=== PATIENT | female | born 1935 | race Caucasian/White ===

== ENCOUNTER 2018-01-13 05:23 | Day surgery (SDC) | payer OTHER, BC ==
[~2018-01-13] VITALS: Ht 167.6 cm; Wt 75.3 kg
--- NOTE | ~2018-01-13 | O ---
[facility] [place] [address] OPERATIVE REPORT Name: AMINTA SAMUEL Room #: DEP [facility].#: [id number] Admission: 01/13/18 Attend Phys: Edu Crandall MD Discharge: 01/13/18 Date of : 31 Report #: [id number] THIS REPORT FOR: //name// CC: Dr. Darwin Crandall SURGEON: Edu Crandall MD SIGN BUILDER SUPERVISOR: None. PREOPERATIVE DIAGNOSIS: Bilateral lower lid ectropion. POSTOPERATIVE DIAGNOSIS: Bilateral lower lid ectropion. OPERATION PERFORMED: Bilateral lower lid ectropion repair. ANESTHESIA: Local with IV sedation. COMPLICATIONS: None. INDICATIONS FOR PROCEDURE: This patient has bilateral acquired lower lid ectropion with chronic tearing and discharge. The current procedures are undertaken in order to improve the patient's visual function, lacrimal outflow, and level of comfort. Informed consent was obtained to include but not limit to the risk of loss of vision, bleeding, infection, scarring, failure to improve the problem and need for further surgery. DESCRIPTION OF OPERATION: The patient was taken to the operating room where 2% Xylocaine with epinephrine mixed with equal parts of 0.75% Marcaine with Wydase was administered transcutaneously and transconjunctivally to each lower lid and lateral canthal area. The patient was then prepped and draped in the usual sterile fashion. A Kirt clamp was then used to clamp the left lateral canthus following which a sharp canthotomy and cantholysis were performed. The tarsal strip was prepared laterally, removing the lash bearing portion of the redundant lid margin and the redundant tarsal plate. Hemostasis was achieved with a monopolar cautery, as it was throughout the case. The tarsal strip was then secured to the internal portion of the lateral orbital tubercle with two interrupted 5-0 Prolene sutures. The lateral canthal angle was sharply reformed as the subcutaneous structures and the skin were closed with multiple interrupted 6-0 plain gut sutures. Attention was then turned to the right side where the same procedure was performed. The wounds were cleaned and dressed with ophthalmic antibiotic ointment. The patient was then transported to the recovery area, having [address] [address] OPERATIVE REPORT Name: AMINTA SAMUEL Room #: DEP [facility]#: [id number] Admission: 01/13/18 Attend Phys: Edu Crandall MD Discharge: 01/13/18 Date of : 31 Report #: [id number] tolerated the procedure well with no anesthetic or operative complications being noted. <ELECTRONICALLY SIGNED> By: Edu Crandall MD 01/17/18 0614 1243 1252 Edu Crandall MD /nt
[~2018-01-13 05:23] MED LIST: ASPIR 8181 MG PO; ATORVASTATIN CA40 MG PO; CALCIUM 500 +1 EAC5 PO; CENTRUM SILVER1 EAC4 PO; CHLORTHALIDONE25 MG PO; GLYBURIDE 5 MG T5 M1 PO; LOPRESSOR25 PO; METFORMIN HCL500 MG PO; NORCO 10-325 T1 EACH PO; PRINIVIL20 M1 PO; TRAZODONE HCL50 MG PO; ZOLOFT100 MG PO
[2018-01-13 12:00] VITALS: BP 137/85
== END 2018-01-13 16:00 | disposition home or self-care (01) ==
LOC: TBA 05:23 → OR 05:23 → TBA 05:24 → OR 13:25
DX: H02.102 Unspecified ectropion of right lower eyelid (principal); H02.105 Unspecified ectropion of left lower eyelid; I10 Essential (primary) hypertension; E11.9 Type 2 diabetes mellitus without complications; E78.00 Pure hypercholesterolemia, unspecified; F32.9 Major depressive disorder, single episode, unspecified; F41.9 Anxiety disorder, unspecified; G47.33 Obstructive sleep apnea (adult) (pediatric); Z95.5 Presence of coronary angioplasty implant and graft; Z98.41 Cataract extraction status, right eye; Z98.42 Cataract extraction status, left eye; Z90.49 Acquired absence of other specified parts of digestive tract; Z98.890 Other specified postprocedural states; Z88.0 Allergy status to penicillin; Z88.2 Allergy status to sulfonamides; Z88.8 Allergy status to other drugs, medicaments and biological substances; Z79.82 Long term (current) use of aspirin; Z79.899 Other long term (current) drug therapy; Z79.891 Long term (current) use of opiate analgesic
CPT/HCPCS: 50010; 50101; 50386; 50398; 51636; 56527; 56531; 62110; 62850; 70005

== ENCOUNTER 2018-04-25 05:25 | Day surgery (SDC) | payer OTHER, BC ==
[~2018-04-25] VITALS: Ht 167.6 cm; Wt 74.8 kg
--- NOTE | ~2018-04-25 | O ---
[facility] [place] [address] OPERATIVE REPORT Name: AMINTA SAMUEL Room #: 150-2 [facility]..#: [id number] Admission: 04/25/18 Attend Phys: Edu Crandall MD Discharge: Date of : 31 Report #: [id number] THIS REPORT FOR: //name// CC: Darwin Crandall DATE OF SERVICE: 04/25/2018 PREOPERATIVE DIAGNOSIS: Bilateral upper lid ptosis with superior visual field defects both eyes. POSTOPERATIVE DIAGNOSIS: Bilateral upper lid ptosis with superior visual field defects both eyes. OPERATION PERFORMED: Bilateral upper lid functional ptosis repair. AUDIO VIDEO MECHANIC: None. ANESTHESIA: Local with IV sedation. COMPLICATIONS: None. INDICATIONS FOR PROCEDURE: This patient has bilateral upper lid ptosis with superior visual field loss both eyes. Visual field testing demonstrates dense superior visual defects. Retesting with the upper lid elevated shows an improvement in visual field loss of over 30% and in excess of 12 degrees. The current procedure is being undertaken in order to improve the patient's visual function. Informed consent was obtained to include but not limited to the risk of loss of vision, bleeding, infection, scarring, failure to improve the problem and need for further surgery, such as adjustment of lid height. DESCRIPTION OF PROCEDURE: The patient was taken to the operating room, where 2% Xylocaine with epinephrine mixed with equal parts of 0.75% Marcaine with Wydase was administered transcutaneously to each upper lid. The patient was then prepped and draped in the usual sterile fashion. An upper lid crease incision was then made bilaterally and the dissection was carried down until the orbital septum was identified. The orbital septum was then cleared and the preaponeurotic fat identified. The levator aponeurosis was then disinserted from the anterior surface of the tarsal plate and dissected free in the avascular Wick's muscle plane. The aponeurosis was then advanced and reattached to the anterior surface of the tarsal plate with interrupted [facility] [address] [place] [address] OPERATIVE REPORT Name: AMINTA SAMUEL Cathy Room #: 150-2 [facility].#: [id number] Admission: 04/25/18 Attend Phys: Edu Crandall MD Discharge: Date of : 31 Report #: [id number] 6-0 Novafil sutures on each side, adjusting for height and contour. The redundant aponeurosis was then amputated. The incision was then closed with multiple interrupted 6-0 chromic sutures that were used to recreate an upper lid crease. The skin was closed with a running 6-0 plain gut suture. The wound was then cleaned and dressed with ophthalmic antibiotic ointment followed by a Telfa pad. The patient was transported to the recovery area, having tolerated the procedure well with no anesthesia or operative complications being noted. By: [id number] MD alexia Sanchez
--- NOTE | ~2018-04-25 | EKG ---
[address] [address] ELECTROCARDIOGRAM REPORT Name: LIZZIEAMINTA Room #: DEP [facility]#: [id number] Admission: 04/25/18 Attend Phys: Edu Crandall MD Discharge: 04/25/18 Date of : 31 Report #: [id number] THIS REPORT FOR: //name// [facility] Test Date: 2018-04-25 Test Time: 11:25:30 Pat Name: AMINTA SAMUEL Department: Room: 150 2 Gender: F Ambulatory Care Coordinator: BERTA : 1935 Requested By: Edu Crandall Order Number: [id number] MD: Quang Lawrence Measurements Intervals [place] Rate: 46 P: -30 VA: 210 QRS: -57 QRSD: 95 T: 23 QT: 504 QTc: 441 Interpretive Statements Sinus bradycardia Atrial premature complex Abnormal R-wave progression, late transition No previous ECG available for comparison Electronically Signed On 04-25-2018 15:58:26 CDT by Quang Lawrence [email or web address] <ELECTRONICALLY SIGNED> By: Quang Lawrence MD 04/25/18 1558 1125 1125 Quang Lawrence MD /PINEDA
== END 2018-04-25 13:56 | disposition home or self-care (01) ==
LOC: OR 05:25 → TBA 05:25 → OR 09:29
DX: H02.403 Unspecified ptosis of bilateral eyelids (principal); H53.462 Homonymous bilateral field defects, left side; H53.461 Homonymous bilateral field defects, right side; I10 Essential (primary) hypertension; E11.9 Type 2 diabetes mellitus without complications; E78.00 Pure hypercholesterolemia, unspecified; G47.33 Obstructive sleep apnea (adult) (pediatric); F32.9 Major depressive disorder, single episode, unspecified; F41.9 Anxiety disorder, unspecified; Z90.49 Acquired absence of other specified parts of digestive tract; Z90.711 Acquired absence of uterus with remaining cervical stump; Z98.890 Other specified postprocedural states; Z79.899 Other long term (current) drug therapy; Z98.41 Cataract extraction status, right eye; Z95.5 Presence of coronary angioplasty implant and graft; Z98.42 Cataract extraction status, left eye; Z88.0 Allergy status to penicillin; Z88.2 Allergy status to sulfonamides; Z88.8 Allergy status to other drugs, medicaments and biological substances; Z79.82 Long term (current) use of aspirin; Z79.891 Long term (current) use of opiate analgesic
CPT/HCPCS: 50010; 50101; 50386; 50398; 51636; 56528; 56531; 62110; 62850; 70005

== ENCOUNTER → 2019-12-06 | Outpatient (CLI) | payer OTHER, BC | LOC: SJCVCIMAG 15:18 | DX: I11.9 Hypertensive heart disease without heart failure (principal); I25.10 Atherosclerotic heart disease of native coronary artery without angina pectoris; E78.00 Pure hypercholesterolemia, unspecified; E11.9 Type 2 diabetes mellitus without complications; R94.31 Abnormal electrocardiogram [ECG] [EKG]; M19.90 Unspecified osteoarthritis, unspecified site; Z88.0 Allergy status to penicillin; Z88.2 Allergy status to sulfonamides; Z88.8 Allergy status to other drugs, medicaments and biological substances; Z79.82 Long term (current) use of aspirin; Z79.899 Other long term (current) drug therapy; Z79.84 Long term (current) use of oral hypoglycemic drugs; Z90.49 Acquired absence of other specified parts of digestive tract; Z90.710 Acquired absence of both cervix and uterus ==